=== PATIENT | male | born 1960 | race Caucasian/White ===

== ENCOUNTER → 2019-10-02 | Day surgery (SDC) | payer MEDICARE, OTHER ==
[~2019-10-02] MED LIST: BUPIVACAINE HCL 0.5% INJ 30 ML VIAL INJ ONE; CEFAZOLIN SOD 1 GM/NS 50ML 50 ML IV ONE; DEXAMETHASONE SOD PHOS INJ 4 MG/ML VIAL ONE; FENTANYL CITRATE/PF 100MCG/2 ML INJ ONE; LIDOCAINE HCL 2% LOCAL INJ 5 ML SDV VIAL INJ ONE; LOSARTAN POTASS25 MG PO; MIDAZOLAM HCL 2 MG/2 ML VIAL ONE; MORPHINE SULFAT30 M2 PO; MUPIROCIN 2% OINT 22 GM TUBE ONE; ONDANSETRON HCL INJ 2MG/ML 2ML 2 MG/ML VIAL ONE; PANTOPRAZOLE SO40 MG PO; PROPOFOL IV EMULSION 10 MG/ML 20 ML VIAL ONE; ROBAXIN-750750 MG PO; SEVOFLURANE INHAL SOLN 250 ML PEN BTL ONE
--- OUTSIDE RECORDS SUMMARY | 2019-10-02 06:09 | XMS REPORT | Encounter Summary ---
Author Organization Unknown Address [address] [place] [id number] Phone [phone] Care Team Providers Care Physics Instructor Name Role Phone Dr. Magda North 3 [phone] Wilner Barakat MD (Dermatology 105 [phone] Hashim Khandwalla 107 [phone] Sammy Neri MD 113 [phone] Flavio Clark MD 124 [phone] Tyrell Austin 195 [phone] Reason for Visit Annual physical - male; Annual Depression Screening Instructions 1. Adult health examination lipid panel, serum CBC w/ auto diff CMP, serum or plasma 2. Benign essential hypertension losartan 50 mg tablet 3. Gastroesophageal reflux disease without esophagitis pantoprazole 40 mg tablet,delayed release 4. Influenza vaccination declined 5. Influenza vaccination 6. Body mass index 30+ - obesity body mass index: care instructions learning about healthy weight 7. Screening for malignant neoplasm of prostate PSA, serum or plasma 8. Pure hyperglyceridemia 9. Depression screening positive learning about depression learning about mood disorders Discussion Note: None recorded. Plan of Care Reminders Provider Appointments Return to Office on or around 09/07/2020 Magda North MD Lab Lipid Panel, Serum 09/07/2019 [facility] CBC W/ Auto Diff 09/07/2019 [facility] CMP, Serum or Plasma 09/07/2019 [facility] PSA, Serum or Plasma 09/07/2019 [facility] Referral None recorded. Procedures None recorded. Surgeries None recorded. Imaging None recorded. Medications Name Start Date losartan 50 mg tablet Take 1 tablet every day by oral route. melatonin at bedtime every night methocarbamol 750 mg tablet Take 1 tablet 3 times a day by oral route. morphine ER 30 mg 24 hr capsule,extended release Take 1 capsule twice a day by oral route. pantoprazole 40 mg tablet,delayed release Take 1 tablet every day by oral route. Medications Administered None recorded. Vitals Height Weight BMI Blood Pressure 5 ft 8.75 in 220 lbs 32.7 kg/m2 123/75 mm[Hg] Results Lab Results None recorded. Allergies Code Code System Name Reaction Severity Status Onset 985439 RxNorm Welchol Active NKDA Problems Name Status Onset Date Source Pure Hyperglyceridemia Active 12/02/2015 Benign Essential Hypertension Active 09/13/2017 Gastroesophageal Reflux Disease without Esophagitis Active 09/13/2017 Disorder of Intervertebral Disc of Thoracic Spine Active 09/14/2017 Severe Recurrent Major Depression without Psychotic Features Active 09/14/2018 Insomnia Active 09/14/2018 Osteoarthritis of Knee Active 09/14/2018 Rotator Cuff Syndrome Active 09/14/2018 Avascular Necrosis of Bone of Hip Active 09/07/2019 Hyperglycemia Active 09/07/2019 History of Polyp of Colon Active 09/07/2019 History of Calculus of Kidney Active 09/07/2019 Procedures Date Name Performed by 07/18/2016 Hip Surgery Information not available Colonoscopy Information not available Fusion Information not available Tonsillectomy Information not available Vaccine List Vaccine Type DT (pediatric) 07/18/2013 Social History Tobacco Smoking Status Never Smoker Past Encounters 09/07/2019 Adult Health Examination; Benign Essential Hypertension; Gastroesophageal Reflux Disease without Esophagitis; Influenza Vaccination Declined; Influenza Vaccination; Body Mass Index 30+ - Obesity; Screening for Malignant Neoplasm of Prostate; Pure Hyperglyceridemia; Depression Screening Positive Magda North MD: [address] [place] [phone], Ph. History of Present Illness Note:pt here for annual exam, feeling well, see ROS Review of Systems Comprehensive General Adult ROS Reported By: Patient Constitutional: Constitutional: no fever, weight gain (11lbs) Eyes: Eyes: no vision change ENMT: Ears: no ear pain. Nose: no sinus problems. Mouth/Throat: no sore throat Cardiovascular: Cardiovascular: no chest pain, no shortness of breath when walking, no palpitations Respiratory: Respiratory: no cough, no wheezing, no shortness of breath Gastrointestinal: Gastrointestinal: no abdominal pain, no nausea, no vomiting, no diarrhea, constipation, GERD; had H pylori last yearran out of pantopazole 1 week ago and GERD is bad Genitourinary: Genitourinary: no increased frequency Musculoskeletal: Musculoskeletal: no muscle aches, no muscle weakness, no swelling in the extremities, arthralgias/joint pain; sees pain management for his back and shoulders, has right rotator cuff tear and needs to have surgery but pain is controlled so putting it off for now Integumentary: Skin: no rashes, abnormal mole; basal cell cancer on scalp , to have Mohs next week Neurologic: Neurologic: no numbness, no dizziness, no headaches Psychiatric: Psych: no depression, no sleep disturbances; seeing psych and doing counseling , off meds Endocrine: Endocrine: no fatigue Hematologic/Lymphatic: Hematologic/Lymphatic no bruising Allergic/Immunologic: Allergy/Immunologic: no runny nose, no sinus pressure Physical Exam General Adult Exam (male) Reported By: Patient Constitutional: General Appearance: healthy-appearing, well-developed, overweight. Level of Distress: NAD. Ambulation: ambulating normally Psychiatric: Mental Status: normal mood, normal affect. Orientation: to time, to place, to person Head: Head: normocephalic, atraumatic Eyes: Pupils: PERRLA. EOM: EOMI ENMT: Ears: EACs clear, TMs clear. Nose: no sinus tenderness. Oropharynx: moist mucous membranes, no erythema, no exudates Neck: Neck: supple. Lymph Nodes: no cervical LAD Lungs: Auscultation: breath sounds normal, good air movement, no wheezing, no rales/crackles, no rhonchi Cardiovascular: Heart Auscultation: RRR, no murmurs. Neck vessels: no carotid bruits Abdomen: Inspection and Palpation: soft, non-distended, no tenderness, no guarding, no masses Male : Prostate: symmetrical, not enlarged, non-tender, smooth / no nodules Rectal: Anus, Perineum, Rectum: normal tone, no hemorrhoids, no masses Musculoskeletal:: Motor Strength and Tone: normal. Joints, Bones, and Muscles: normal movement of all extremities. Extremities: no edema Neurologic: Gait and Station: normal gait, normal station. Cranial Nerves: grossly intact. Sensation: grossly intact Skin: Inspection and palpation: no rash, no lesions
[2019-10-02 09:10] VITALS: BP 113/77
--- NOTE | 2019-10-02 12:55 | Operative Report ---
DATE OF PROCEDURE: 10/02/2019 SURGEON: Tyrell Austin MD PREOPERATIVE DIAGNOSIS: Mass, right wrist, CMC joint. POSTOPERATIVE DIAGNOSIS: Lipoma of right wrist. PROCEDURE: Excision of lipoma, 6 cm, right wrist. ANESTHESIA: General. HISTORY: The patient is a 59-year-old right-hand dominant male, who states that he has an enlarging mass at the base of the right thumb CMC joint. Risks, benefits, and alternative of treatment were discussed with the patient and he is prepared to undergo the procedure as outlined. PROCEDURE IN DETAIL: The patient was marked preoperatively in the holding area. He was brought to the operating theater and after the induction of adequate general anesthesia, he was prepped and draped in a supine position and a time-out was performed. A longitudinal incision was marked out over the prominence of the mass. The right upper extremity was exsanguinated and the tourniquet was inflated to a pressure of 250 mmHg. The incision was made through the skin and subcutaneous tissues, and small venous tributaries were controlled with the bipolar cautery. Immediately, in the subcutaneous plane, a large 6 cm lipoma was encountered. Branches of the radial sensory nerve were noted to course over the top of the lipoma. These radial sensory branches were then bluntly dissected off the lipoma and retracted and protected and preserved. At this point, dissection continues on all sides of lipoma down to the level of the first dorsal compartment. The lipoma was then released and removed in its entirety on block. It was sent for permanent pathologic examination. The wound was irrigated with bacteriostatic saline and then closed with a 5-0 nylon in an interrupted horizontal mattress fashion. A Marcaine field block was performed at the operative site. The tourniquet was deflated, all the fingers pinked up nicely, and a sterile bulking conforming bandage was applied. The patient tolerated the procedure well and was brought to recovery room in satisfactory condition and discharged with a postoperative instruction sheet as well as a followup appointment. Tyrell Austin MD ER/MODL /[id number]
== END | disposition home or self-care (01) ==
LOC: OR 06:05
PROVIDERS: ATTEND Plastic Surgery
DX: D17.79 Benign lipomatous neoplasm of other sites (principal); I10 Essential (primary) hypertension; G89.29 Other chronic pain; Z01.810 Encounter for preprocedural cardiovascular examination; Z01.812 Encounter for preprocedural laboratory examination
CPT/HCPCS: 25073; 88304; 93005; J0690; J1100; J2001; J2250; J2405; J2704; J3010